=== PATIENT | male | born 2000 | race Two or more races ===

== ENCOUNTER 2023-06-11 18:25 | Emergency (ER) | payer MEDICAID ==
[~2023-06-11] VITALS: Ht 193 cm; Wt 125.4 kg
[2023-06-11] MEDS ORDERED: IBUP1TAB5 PO (21:10)
[2023-06-11] MEDS ORDERED: CYCL-611 PO (21:10)
[2023-06-11 21:26] VITALS: BP 127/85; PULSE 71; RESP 17; TEMP 98.7; O2SAT 97
== END 2023-06-11 21:27 | disposition home or self-care (01) ==
LOC: ER 18:25
DX: S23.41XA Sprain of ribs, initial encounter (principal); S23.3XXA Sprain of ligaments of thoracic spine, initial encounter; X58.XXXA Exposure to other specified factors, initial encounter; Y93.89 Activity, other specified; Y92.89 Other specified places as the place of occurrence of the external cause; Y99.8 Other external cause status
CPT/HCPCS: 71046; 72070

== ENCOUNTER 2024-03-07 05:07 | Emergency (ER) | payer MEDICAID, OTHER ==
[~2024-03-07] VITALS: Ht 193 cm; Wt 125.5 kg
[~2024-03-07 05:07] MED LIST: CYCL-611 PO; IBUP1TAB5 PO
[2024-03-07 06:47] VITALS: BP 119/78; TEMP 98.4
[2024-03-07 07:32] VITALS: PULSE 97; RESP 16; O2SAT 97
[2024-03-07] MEDS ORDERED: LIDO2SOL26 MT (07:43)
[2024-03-07] MEDS ORDERED: NAPR-746 PO (07:43)
[2024-03-07] MEDS ORDERED: PENI500T2 PO (07:43)
[2024-03-07] MEDS ORDERED: METH4PAK PO (07:43)
== END 2024-03-07 07:49 | disposition home or self-care (01) ==
LOC: ER 05:07
DX: J03.90 Acute tonsillitis, unspecified (principal); Z79.899 Other long term (current) drug therapy